=== PATIENT | male | born 1945 | race Asian ===

== ENCOUNTER 2019-02-12 08:36 | Day surgery (SDC) | payer OTHER ==
[2019-02-12] MEDS ORDERED: PROPOFOL 40 ML (09:47)
[2019-02-12] MEDS ORDERED: LIDOCAINE 100 MG SYRINGE (09:47)
[2019-02-12] MEDS ORDERED: FENTAnyl 50 MCG/ML VIAL (09:47)
== END 2019-02-12 13:10 | disposition home or self-care (01) ==
LOC: GIL 08:36
DX: K92.1 Melena (principal); K64.8 Other hemorrhoids; K29.60 Other gastritis without bleeding; I10 Essential (primary) hypertension; E78.5 Hyperlipidemia, unspecified; I25.10 Atherosclerotic heart disease of native coronary artery without angina pectoris; Z79.82 Long term (current) use of aspirin
CPT/HCPCS: 43239; 88305; 88312